=== PATIENT | female | born 1970 | race Caucasian/White ===

== ENCOUNTER → 2016-09-25 | Outpatient (CLI) | payer BC ==
[~2016-09-25] MED LIST: KLONOPIN1 MG PO; LAMICTAL150 MG PO; PLAVIX 75MG TAB75 MG PO; PRISTIQ100 MG PO; PROVIGIL200 MG PO; RITALIN LA PO; ZOCOR40 MG PO
== END ==
LOC: BHSO 10:00
DX: F33.42 Major depressive disorder, recurrent, in full remission (principal)

== ENCOUNTER → 2016-11-13 | Outpatient (CLI) | payer BC | LOC: BHSO 09:48 | DX: F33.41 Major depressive disorder, recurrent, in partial remission (principal) ==

== ENCOUNTER → 2017-02-12 | Outpatient (CLI) | payer BC | LOC: BHSO 11:32 | DX: F41.1 Generalized anxiety disorder (principal) ==

== ENCOUNTER → 2017-07-23 | Outpatient (CLI) | payer OTHER | LOC: BHSO 11:16 | DX: F41.1 Generalized anxiety disorder (principal) ==

== ENCOUNTER → 2018-07-11 | Outpatient (CLI) | payer BC | LOC: MC.RAD 09:34 | DX: Z12.31 Encounter for screening mammogram for malignant neoplasm of breast (principal); Z98.82 Breast implant status ==

== ENCOUNTER → 2020-03-05 | Outpatient (CLI) | payer BC ==
[~2020-03-05] MED LIST changes: +KLONOPIN 1MG1 MG PO; -KLONOPIN1 MG PO; +LIPITOR20 MG PO; +MULTI VITAMINS1 TAB PO; +SYNTHROID 0.0.025 MG PO
== END ==
LOC: MC.RAD 14:07
DX: Z12.31 Encounter for screening mammogram for malignant neoplasm of breast (principal); Z98.82 Breast implant status

== ENCOUNTER → 2021-03-17 | Outpatient (CLI) | payer BC | LOC: MC.RAD 09:42 | DX: Z12.31 Encounter for screening mammogram for malignant neoplasm of breast (principal) ==